=== PATIENT | female | born 1975 | race Caucasian/White ===

== ENCOUNTER 2024-01-19 18:43 | Emergency (ER) | payer OTHER ==
[~2024-01-19] VITALS: Ht 157.5 cm; Wt 139.7 kg
[2024-01-19 18:53] VITALS: BP 124/54; PULSE 74; RESP 18; TEMP 98.9; O2SAT 98
[2024-01-19] MEDS: IBUPROFEN 800 MG TAB PO ONE (19:36)
[2024-01-19] MEDS ORDERED: IBUP-2218 PO (20:03)
== END 2024-01-19 20:15 | disposition home or self-care (01) ==
LOC: MED 18:43
DX: S83.91XA Sprain of unspecified site of right knee, initial encounter (principal); R03.0 Elevated blood-pressure reading, without diagnosis of hypertension; Z79.899 Other long term (current) drug therapy; Z88.8 Allergy status to other drugs, medicaments and biological substances; X58.XXXA Exposure to other specified factors, initial encounter; Y92.89 Other specified places as the place of occurrence of the external cause; Y93.89 Activity, other specified; Y99.8 Other external cause status
CPT/HCPCS: 73562; 99283